=== PATIENT | female | born 1990 | race Caucasian/White ===

== ENCOUNTER 2016-08-29 12:51 | Emergency (ER) | payer OTHER ==
[~2016-08-29] VITALS: Ht 167.6 cm; Wt 72.6 kg
--- NOTE | 2016-08-29 13:11 | ED GI/GU/ABDOMINAL COMPLAINT ---
History of Present Illness General Chief Complaint: Abdominal Pain/Flank Pain Stated Complaint: ABD PAIN SINCE YEST MORNING, NVD Source: patient, old records Exam Limitations: no limitations Vital Signs & Intake/Output Vital Signs & Intake/Output Vital Signs Date Time Temp Pulse Resp B/P Pulse O2 O2 Flow FiO2 Ox Delivery Rate 08/29 1525 97.4 70 18 137/66 100 Room Air 08/29 1404 Room Air 08/29 1254 97.6 98 18 136/90 100 Room Air ED Intake and Output 08/30 0000 08/29 1200 Intake Total 0 Output Total Balance 0 Intake, Oral 0 Patient 160 lb Weight Allergies Coded Allergies: No Known Allergies (08/29/16) Reconcile Medications Ondansetron (Zofran Odt) 4 MG TAB.RAPDIS 1 TAB SL TID PRN nausea Triage Note: 25 Y/O FEMALE C/O UPPER ABDOMINAL PAIN X 3 DAYS. ALSO C/O N/V/D. REPORTS THERE IS A CHANCE OF . DENIES URINARY SYMPTOMS. AFEBRILE. Triage Nurses Notes Reviewed? yes LMP (ages 10-50): now (onset 3 days ago) ? n Is pt currently ? No HPI: patient is a 25-year-old female presents complaining of diffuse upper abdominal pain onset yesterday. Pain is a sharp pain, no alleviating factors. Pain mildly exacerbated with movement. Significantly decreased appetite since onset.. Approximately 8 episodes of vomiting since onset of the pain. Approximately 8 episodes of diarrhea since onset. Patient has taken an over-the -counter pain medication, she believes ibuprofen, with no improvement. Patient' s last menstrual period began 3 days ago. Patient denies fevers, chills, sick contacts, suspicious food intake, urinary symptoms. (ALLAN WILCOX) Past History Travel History Traveled to [place] past 21 day No Medical History Any Pertinent Medical History? none Neurological: NONE EENT: NONE Cardiovascular: NONE Respiratory: NONE Gastrointestinal: NONE Hepatic: NONE Renal: NONE Musculoskeletal: NONE Psychiatric: NONE Endocrine: NONE Blood Disorders: NONE Cancer(s): NONE ELECTRONIC EQUIPMENT MAINT TECH/Reproductive: NONE Surgical History Surgical History: non-contributory Psychosocial History What is your primary language Telugu Tobacco Use: Current Daily Use Daily Tobacco Use Amount/Type: => 5 Cigarettes daily Family History Hx Contributory? No (ALLAN WILCOX) Review of Systems Review of Systems Constitutional: Denies: chills, fever. EENTM: Reports: no symptoms. Respiratory: Denies: cough, short of breath. Cardiovascular: Denies: chest pain. GI: Reports: see HPI. Genitourinary: Reports: no symptoms. Denies: discharge, dysuria. Musculoskeletal: Denies: back pain, neck pain. Skin: Reports: no symptoms. Neurological/Psychological: Reports: no symptoms. Hematologic/Endocrine: Reports: no symptoms. Immunologic/Allergic: Reports: no symptoms. (ALLAN WILCOX) Physical Exam Physical Exam General Appearance: well developed/nourished, alert, awake Head: atraumatic, normal appearance Eyes: Bilateral: normal appearance, PERRL, EOMI. Ears, Nose, Throat, Mouth: hearing grossly normal, moist mucous membrane Neck: normal inspection, supple, full range of motion Respiratory: normal breath sounds, chest non-tender, no respiratory distress, lungs clear Cardiovascular: regular rate/rhythm Gastrointestinal: normal bowel sounds, soft, non-tender, negative Dewey sign, negative McBurney's point tenderness, negative Rovsing sign, negative psoas or obturator sign. Back: normal inspection, normal range of motion Extremities: normal range of motion Neurologic/Psych: no motor/sensory deficits, awake, alert, oriented x 3, normal gait, normal mood/affect Skin: intact, normal color, warm/dry Core Measures ACS in differential dx? No Severe Sepsis Present: No Septic Shock Present: No (ALLAN WILCOX) Progress Differential Diagnosis: appendicitis, biliary colic, cholecystitis, diverticulitis, ectopic , endometritis, gastritis, hepatitis, ischemic bowel, intrauterine , ovarian cyst, ovarian torsion, pancreatitis, PID/ cervicitis, PUD/GERD, UTI/pyelo Plan of Care: Orders Procedure Date/time Status LIPASE 08/29 1319 Complete COMPREHENSIVE METABOLIC PANEL 08/29 1319 Complete CBC WITHOUT DIFFERENTIAL 08/29 1319 Complete AMYLASE 08/29 1319 Complete URINE 08/29 1256 Complete URINALYSIS 08/29 1256 Complete Laboratory Tests 08/29/16 1348: Anion Gap 11, Estimated GFR > 60, BUN/Creatinine Ratio 14.3, Glucose 97, Calcium 9.4, Total Bilirubin 0.9, AST 16, ALT 32, Alkaline Phosphatase 60, Total Protein 6.9, Albumin 4.3, Globulin 2.6, Albumin/Globulin Ratio 1.7, Amylase < 30 L, Lipase 33, CBC w Diff NO MAN DIFF REQ, RBC 4.57, MCV 91.1, MCH 31.0, RDW 13.5, MPV 7.5, Gran % 87.6 H, Lymphocytes % 8.2 L, Monocytes % 4.0, Eosinophils % 0.1, Basophils % 0.1, Absolute Granulocytes 6.5, Absolute Lymphocytes 0.6 L, Absolute Monocytes 0.3, Absolute Eosinophils 0, Absolute Basophils 0, PUBS MCHC 34.1 08/29/16 1325: Urinalysis LIGHT H, Urine Color YEL, Urine Clarity HAZY H, Urine pH 6.0, Ur Specific Cornelius >= 1.030, Urine Protein 30 H, Urine Ketones TRACE H, Urine Nitrite NEG, Urine Bilirubin NEG@ICTO, Urine Urobilinogen 0.2, Ur Leukocyte Esterase NEG, Ur Microscopic SEDIMENT EXAMINED, Urine RBC 15-25 H, Urine WBC 1- 3 H, Ur Epithelial Cells MOD H, Urine Bacteria MOD H, Urine Mucus MANY H, Urine Hemoglobin MOD H, Urine Glucose NEG, Urine Test NEGATIVE 08/29/2016 2:39:45 PM: Results of labs discussed with patient. No abdominal tenderness on exam. Patient currently on her menstrual period. Imaging deferred secondary to exam and labs. 08/29/2016 3:05:48 PM: Patient tolerating paul riri appropriately. No vomiting. Patient appears stable for discharge. (ALLAN WILCOX) Initial ED EKG: none (ALLAN WILCOX) Departure Departure Disposition: HOME OR SELF CARE Condition: Stable Clinical Impression Primary Impression: Abdominal pain Qualifiers: Abdominal location: upper abdomen, unspecified Qualified Code: R10.10 - Upper abdominal pain, unspecified Secondary Impressions: Vomiting and diarrhea Referrals: UNKNOWN (PCP/Family) Additional Instructions: Clear liquid diet for the next 24 hours. Then advance your diet as tolerated. Return to the emergency department if you develop fevers, pain localized to the right lower abdomen, unable to stay hydrated, or worsening of symptoms. Departure Forms: Customer Survey General Discharge Information Prescriptions: Current Visit Scripts Ondansetron (Zofran Odt) 1 TAB SL TID PRN nausea #10 TAB (ALLAN WILCOX) PA/TOP LIFT NAILER Co-Sign Statement Statement: ED Attending supervision documentation- [] I saw and evaluated the patient. I have also reviewed all the pertinent lab results and diagnostic results. I agree with the findings and the plan of care as documented in the PA's/TOP LIFT NAILER's documentation. [X] I have reviewed the ED Record and agree with the PA's/TOP LIFT NAILER's documentation. [] Additions or exceptions (if any) to the PAs/TOP LIFT NAILER's note and plan are summarized below: [] (GHAZALA ESPAÑA,AKIN)
[2016-08-29 14:02] LABS: ABSOLUTE BASOPHIL COUNT 0 /CUMM (0.0-0.2); ABSOLUTE EOSINOPHIL COUNT 0 /CUMM (0.0-0.7); ABSOLUTE GRANULOCYTE CT 6.5 /CUMM (1.4-6.5); ABSOLUTE LYMPH COUNT 0.6 /CUMM (1.2-3.4); ABSOLUTE MONOCYTE COUNT 0.3 /CUMM (0.10-0.60); BASOPHIL % 0.1 % (0.0-2.0); EOSINOPHIL % 0.1 % (0-5); HEMATOCRIT 41.6 % (37-47); MEAN CORPUSCULAR HGB CONC 34.1 G/DL (33.0-37.0); MEAN CORPUSCULAR VOLUME 91.1 FL (81.0-99.0); MEAN PLATELET VOLUME 7.5 FL (7.4-10.4); PLATELET COUNT 187 /CUMM (130-400); RBC DISTRIBUTION WIDTH 13.5 % (11.5-14.5); RED BLOOD CELL CT 4.57 /CUMM (4.20-5.40); WHITE BLOOD CELL COUNT 7.5 /CUMM (4.8-10.8)
[2016-08-29 14:24] LABS: GRANULOCYTE % 87.6 % (42.2-75.2)
[2016-08-29] MEDS ORDERED: ZOFRAN ODT4 M1 SL (14:41)
[2016-08-29 15:25] VITALS: BP 137/66
== END 2016-08-29 15:40 ==
LOC: ERH 12:51
PROVIDERS: Physician Assistant
DX: R10.10 Upper abdominal pain, unspecified (principal); R19.7 Diarrhea, unspecified; R11.10 Vomiting, unspecified
CPT/HCPCS: 81001; 81025; 96361; 96374; J2405